=== PATIENT | female | born 1965 | race Caucasian/White ===

== ENCOUNTER 2016-06-03 17:22 | Emergency (ER) | payer MEDICAID ==
--- NOTE | ~2016-06-03 | CR63 ---
[facility] A Service of [facility] RADIOLOGY TEXT RESULTS PATIENT: BEVERLEY STACK LOCATION: [facility] : 65 UNIT #: [id number] AGE: [address]: Bora Bradley SEX: F ORDER DR: [id number] [facility] [address] [place], [place] [address] [id number] E MR#: [id number] Acc #: [id number] NAME: BEVERLEY STACK : 1965 SEX: F STUDY DATE/TIME: 06/03/2016 17:07 UNIT: [facility] ROOM: STUDY DESCRIPTION: CR Chest 2 View Attending Physician: Bora Bradley Ordering Physician: Ed Doctor [id number] [facility] Primary Care Physician: Woo Charles M.D. MEDICAL IMAGING REPORT This report is preliminary unless electronic signature is present EXAM Two views chest, 06/03/2016. HISTORY Cough, fever, congestion, body aches, sore throat. Prior history of uterine cancer and asthma. Duration of current symptoms of 4 days. FINDINGS PA and lateral radiographs of the chest are presented. Comparison 11/28/2015. The lungs are well inflated. Patchy and band-like airspace disease at the left lung base felt to involve portions of the inferior lingular segment of upper lobe as well as the basilar left lower lobe. Significantly more pronounced than on prior examination. Appearance suggests pneumonia superimposed on underlying scarring. Followup to radiographic resolution is recommended. There is some linear atelectasis at the right lung base. The remainder of lungs are clear. The heart and mediastinum within normal limits of size and contour. Degenerative changes in spine without acute bony abnormality. No pleural effusion or pneumothorax. Dictated by... Jonny Do M.D. THIS IS AN ELECTRONICALLY VERIFIED REPORT Jonny Do M.D. at 06/04/2016 5:36 PM Giuliana TD: 06/03/2016 21:35 JOB #: [id number] [facility] A Service of [facility] RADIOLOGY TEXT RESULTS PATIENT: BEVERLEY STACK LOCATION: [facility] : 65 UNIT #: [id number] AGE: [address]: Bora Bradley SEX: F ORDER DR: MEDICAL IMAGING REPORT Page 1 of 1 COPY
[2016-06-03 17:13] LABS: INFLUENZA A NEG (NEG); INFLUENZA B NEG (NEG)
[~2016-06-03 17:22] MED LIST: ALBUTEROL MININEB NEB; ALBUTEROL17 G1 IH; ASPIRIN81 M2 PO; BACTRIM DS TABL1 TAB; CELEXA PO; KEFLEX PO; LISINOPRIL20 MG PO; MOTION RELIEF25 MG PO; NAPROSYN500 MG PO; PREDNISONE PO; PRILOSEC2.5 MG; PRILOSEC20 M1 PO; PROVERA10 MG PO; TYLOX 5/500 CAP1 CAP PO; ZITHROMAX1 G/PKT PO
== END 2016-06-03 18:00 | disposition home or self-care (01) ==
LOC: CFTX 17:22
PROVIDERS: Nurse Practitioner
DX: J18.9 Pneumonia, unspecified organism (principal); J06.9 Acute upper respiratory infection, unspecified; I10 Essential (primary) hypertension; J45.909 Unspecified asthma, uncomplicated; F41.0 Panic disorder [episodic paroxysmal anxiety]; Z88.8 Allergy status to other drugs, medicaments and biological substances; Z79.899 Other long term (current) drug therapy
CPT/HCPCS: 71020; 87651; 87804; 94640; 99283

== ENCOUNTER 2016-06-06 10:53 | Emergency (ER) | payer MEDICAID ==
--- NOTE | ~2016-06-06 | CR63 ---
[facility] A Service of [facility] & [facility] RADIOLOGY TEXT RESULTS PATIENT: BEVERLEY STACK LOCATION: [facility] : 65 UNIT #: [id number] AGE: [address]: Richard Simental MD SEX: F ORDER DR: [id number] [facility] [address] [place], [place] [address] [id number] E MR#: [id number] Acc #: [id number] NAME: BEVERLEY STACK : 1965 SEX: F STUDY DATE/TIME: 06/06/2016 11:37 UNIT: [facility] ROOM: STUDY DESCRIPTION: CR Chest 2 View Attending Physician: Richard Simental M.D. Referring Physician: Self Referral-Refer Use Only Ordering Physician: Richard Simental M.D. Primary Care Physician: Woo Charles M.D. MEDICAL IMAGING REPORT This report is preliminary unless electronic signature is present EXAM Single view of the chest dated 06/06/2016 at 1137 hours. COMPARISON Chest 2 views dated 06/03/2016. HISTORY Cough, shortness of air from Wednesday. Pneumonia right lung. FINDINGS 2 views of the chest were obtained. Horizontally linear infiltrate/atelectasis is seen in the left lower lobe. Minimal atelectatic changes in the right lung base cannot be excluded. No obvious pleural effusion or pneumothorax. Heart, mediastinum and bones are within normal limits. Dictated by... Nirali Blum M.D. THIS IS AN ELECTRONICALLY VERIFIED REPORT Nirali Blum M.D. at 06/08/2016 1:48 PM CPR/pc TD: 06/06/2016 13:59 JOB #: [id number] MEDICAL IMAGING REPORT Page 1 of 1 COPY
--- NOTE | ~2016-06-06 | EKG ---
PATIENT: BEVERLEY STACK UNIT #: [id number] Ventricular Rate: 83 BPM Atrial Rate: 83 BPM P-R Interval: 148 ms QRS Duration: 88 ms Q-T Interval: 394 ms QTC Calculation(Bezet): 462 ms P [place]: 55 degrees Calculated R [place]: 18 degrees Calculated T [place]: 8 degrees Diagnosis Line: Normal sinus rhythm Diagnosis Line: Normal ECG Diagnosis Line: When compared with ECG of 27-NOV-2015 23:11, Diagnosis Line: No significant change was found Diagnosis Line: Confirmed by ERIN BRADFORD MD ([id number]) on 06/07/2016 Diagnosis Line: 4:33:07 PM INTERPRETING MD: SANCHEZ PYLE
[2016-06-06] MEDS ORDERED: ADVAIR 100-501 EAC1 INH (11:10)
[2016-06-06] MEDS ORDERED: DOXYCYCLINE HY100 M3 PO (11:10)
[2016-06-06] MEDS ORDERED: LISINOPRIL20 MG PO (11:11)
[2016-06-06] MEDS ORDERED: ALBUTEROL17 GM INH (11:11)
[2016-06-06] MEDS ORDERED: MOTION RELIEF25 MG PO (11:12)
[2016-06-06] MEDS ORDERED: NEXIUM 24HR20 M1 PO (11:12)
[2016-06-06] MEDS ORDERED: MEVACOR PO (11:13)
[2016-06-06] MEDS ORDERED: ZYRTEC PO (11:13)
[2016-06-06 11:44] LABS: BASOPHIL# 0.1 X10e3 (0-0.3); EOSINOPHIL# 0.4 X10e3 (0-0.7); EOSINOPHIL% 6.2 % (0.0-7.0); HEMATOCRIT 41.9 % (35.0-45.0); HEMOGLOBIN 13.5 gm/dL (12.0-16.0); LYMPHOCYTE# 2.1 X10e3 (1.0-3.5); LYMPHOCYTE% 30.8 % (17.0-45.0); MEAN CELL VOLUME 88.9 FL (83-96); MEAN CORPUSCULAR HEMOGLOBIN 28.7 PG (28-34); MEAN CORPUSCULAR HGB CONC 32.2 g/dL (30-36); MEAN PLATELET VOLUME 8.2 FL (6.5-11.5); MONOCYTE# 0.8 X10e3 (0-1.0); MONOCYTE% 11.4 % (3.0-12.0); NEUTROPHIL# 3.4 X10e3 (1.5-7.1); NEUTROPHIL% 50.6 % (40-75); PLATELET COUNT 265 X10e3 (140-420); RED BLOOD COUNT 4.71 X10e (3.90-5.30); RED CELL DISTRIBUTION WIDTH 14.3 % (11.0-15.5); WHITE BLOOD COUNT 6.8 X10e3 (4.0-10.5)
[2016-06-06 11:45] LABS: POC - CKMB <1.0 ng/mL (0.0-7.9); POC - TROPONIN <0.05 ng/mL (<=0.05)
[2016-06-06 11:45] LABS: DIFF IND NO
[2016-06-06 12:15] LABS: ALBUMIN SERUM 3.9 g/dL (3.5-5.0); BILIRUBIN,TOTAL 0.5 mg/dL (0.2-2.0); CREATININE SERUM 0.8 mg/dL (0.6-1.4); GLOM FILT RATE Estimated 85.4 mL/min (>60); POTASSIUM 3.6 mmol/L (3.5-5.1); PROTEIN TOTAL SERUM 7.2 g/dL (6.0-8.3)
== END 2016-06-06 14:00 | disposition home or self-care (01) ==
LOC: CED 10:53
PROVIDERS: Emergency Medicine
DX: J18.9 Pneumonia, unspecified organism (principal); J45.909 Unspecified asthma, uncomplicated; F41.0 Panic disorder [episodic paroxysmal anxiety]; I10 Essential (primary) hypertension; Z90.710 Acquired absence of both cervix and uterus; Z88.1 Allergy status to other antibiotic agents; Z88.8 Allergy status to other drugs, medicaments and biological substances
CPT/HCPCS: 36415; 71020; 80053; 82553; 84484; 85025; 87040; 93005; 94640; 96361; 96365; 96375; 99284; J0696; J2405; J2930

== ENCOUNTER → 2016-07-08 | Outpatient (CLI) | payer MEDICAID ==
[~2016-07-08] MED LIST changes: +ADVAIR 100-501 EAC1 INH; +ALBUTEROL17 GM INH; +DOXYCYCLINE HY100 M3 PO; +MEVACOR PO; +NEXIUM 24HR20 M1 PO; +ZYRTEC PO
--- NOTE | ~2016-07-08 | CR63 ---
[facility] A Service of [facility] & [facility] RADIOLOGY TEXT RESULTS PATIENT: BEVERLEY STACK LOCATION: [facility] : 65 UNIT #: [id number] AGE: [address]: MAKI AGUILAR MD SEX: F ORDER DR: [id number] [facility] [address] [place], [place] [address] [id number] O MR#: [id number] Acc #: [id number] NAME: BEVERLEY STACK : 1965 SEX: F STUDY DATE/TIME: 07/08/2016 12:21 UNIT: [facility] ROOM: STUDY DESCRIPTION: CR Chest 2 View Attending Physician: Maki Aguilar M.D. Referring Physician: Maki Aguilar M.D. Ordering Physician: Maki Aguilar M.D. Primary Care Physician: Maki Aguilar M.D. MEDICAL IMAGING REPORT This report is preliminary unless electronic signature is present EXAM Chest PA and lateral 07/08/2016 HISTORY Cough and chest congestion since 05/30/2016, pneumonia. Benign essential hypertension and asthma. FINDINGS The heart is normal in size. There has been a decrease in the infiltrate at the left lung base. There is however a new somewhat nodular infiltrate in the right perihilar region. Lungs are otherwise clear. There are no pleural effusions. No pneumothorax. IMPRESSION 1. Decrease in left lower lobe pneumonia compared with 06/06/2016. 2. Interval development of new somewhat nodular infiltrate in the right perihilar region. Dictated by... Jero Marcelino M.D. THIS IS AN ELECTRONICALLY VERIFIED REPORT Jero Marcelino M.D. at 07/09/2016 7:47 AM NEO/meme TD: 07/08/2016 16:29 JOB #: [id number] MEDICAL IMAGING REPORT Page 1 of 1 COPY
== END | disposition home or self-care (01) ==
LOC: CRAD 12:08
DX: J18.9 Pneumonia, unspecified organism (principal); R91.8 Other nonspecific abnormal finding of lung field
CPT/HCPCS: 71020

== ENCOUNTER 2016-08-21 23:28 | Emergency (ER) | payer MEDICAID ==
--- NOTE | ~2016-08-21 | CR72 ---
[facility] A Service of [facility] & [facility] RADIOLOGY TEXT RESULTS PATIENT: BEVERLEY STACK LOCATION: [facility] : 65 UNIT #: [id number] AGE: [address]: Jeremias Villafana MD SEX: F ORDER DR: [id number] [facility] [address] [place], [place] [address] [id number] E MR#: [id number] Acc #: [id number] NAME: BEVERLEY STACK : 1965 SEX: F STUDY DATE/TIME: 08/22/2016 0:13 UNIT: [facility] ROOM: STUDY DESCRIPTION: CR Chest Single View Portable Attending Physician: Sabas Villafana M.D. Ordering Physician: Ed Doctor [id number] [facility] Primary Care Physician: Woo Charles M.D. MEDICAL IMAGING REPORT This report is preliminary unless electronic signature is present EXAM Portable chest INDICATION Left-sided chest pain for the past 2 days. PROCEDURE Frontal view chest COMPARISON 07/08/2016 FINDINGS Heart size is unchanged. Stable linear scarring left lung base. New linear opacity right lung base could represent atelectasis or scarring. No dense consolidation, visible pleural fluid or pneumothorax. IMPRESSION New linear atelectasis or scarring in the right lung base with stable scarring at the left lung base. No dense consolidation. Dictated by... Sabas Salazar M.D. THIS IS AN ELECTRONICALLY VERIFIED REPORT Sabas Salazar M.D. at 08/22/2016 10:08 PM Melissa TD: 08/22/2016 09:46 JOB #: [id number] MEDICAL IMAGING REPORT Page 1 of 1 COPY
--- NOTE | ~2016-08-21 | EKG ---
PATIENT: BEVERLEY STACK UNIT #: [id number] Ventricular Rate: 87 BPM Atrial Rate: 87 BPM P-R Interval: 144 ms QRS Duration: 84 ms Q-T Interval: 360 ms QTC Calculation(Bezet): 433 ms P [place]: 42 degrees Calculated R [place]: 14 degrees Calculated T [place]: 9 degrees Diagnosis Line: Normal sinus rhythm Diagnosis Line: Possible Left atrial enlargement Diagnosis Line: Borderline ECG Diagnosis Line: When compared with ECG of 06-JUN-2016 11:20, Diagnosis Line: No significant change was found Diagnosis Line: Confirmed by ANNEL CONCEPCION MD ([id number]) on Diagnosis Line: 08/22/2016 3:03:50 PM INTERPRETING MD: UTE
[2016-08-22 00:28] LABS: BASOPHIL# 0.1 X10e3 (0-0.3); BASOPHIL% 0.8 % (0-2.5); EOSINOPHIL# 0.4 X10e3 (0-0.7); EOSINOPHIL% 4.2 % (0.0-7.0); HEMATOCRIT 39.6 % (35.0-45.0); HEMOGLOBIN 13.3 gm/dL (12.0-16.0); LYMPHOCYTE# 2.9 X10e3 (1.0-3.5); LYMPHOCYTE% 29.1 % (17.0-45.0); MEAN CELL VOLUME 88.7 FL (83-96); MEAN CORPUSCULAR HEMOGLOBIN 29.9 PG (28-34); MEAN CORPUSCULAR HGB CONC 33.7 g/dL (30-36); MEAN PLATELET VOLUME 7.9 FL (6.5-11.5); MONOCYTE# 0.8 X10e3 (0-1.0); MONOCYTE% 7.9 % (3.0-12.0); NEUTROPHIL# 5.7 X10e3 (1.5-7.1); PLATELET COUNT 297 X10e3 (140-420); RED BLOOD COUNT 4.46 X10e (3.90-5.30); RED CELL DISTRIBUTION WIDTH 14.6 % (11.0-15.5); WHITE BLOOD COUNT 9.8 X10e3 (4.0-10.5)
[2016-08-22 00:31] LABS: DIFF IND NO
[2016-08-22 00:45] LABS: POC - CKMB <1.0 ng/mL (0.0-7.9); POC - TROPONIN <0.05 ng/mL (<=0.05)
[2016-08-22 00:50] LABS: CALCIUM SERUM 9.1 mg/dL (8.4-10.2); GLOM FILT RATE Estimated 65.2 mL/min (>60); POTASSIUM 3.9 mmol/L (3.5-5.1)
== END 2016-08-22 01:45 | disposition home or self-care (01) ==
LOC: CED 23:28
PROVIDERS: Emergency Medicine
DX: R07.89 Other chest pain (principal); J45.909 Unspecified asthma, uncomplicated; F41.9 Anxiety disorder, unspecified; K21.9 Gastro-esophageal reflux disease without esophagitis; Z90.710 Acquired absence of both cervix and uterus; Z88.8 Allergy status to other drugs, medicaments and biological substances; Z79.899 Other long term (current) drug therapy
CPT/HCPCS: 36415; 71010; 80048; 82553; 84484; 85025; 93005; 96374; 99285; J1885